=== PATIENT | male | born 1955 | race Caucasian/White ===

== ENCOUNTER 2017-10-22 22:37 | Emergency (ER) | payer OTHER ==
[2017-10-22 22:47] VITALS: TEMP 97.9; BMI 26.9
[2017-10-22 23:08] LABS: PH,URINE 6.5 (4.5-8); URINE APPEARANCE Clear; URINE BILIRUBIN Negative (NEGATIVE); URINE GLUCOSE (UA) Trace (NEGATIVE); URINE KETONE Negative (NEGATIVE); URINE LEUK ESTERASE Negative (NEGATIVE); URINE NITRITE Negative (NEGATIVE); URINE PROTEIN Negative (NEGATIVE); URINE UROBILINOGEN 0.2 (0.2-1.0)
[2017-10-22 23:15] LABS: URINE BLOOD Trace-intact (NEGATIVE); URINE COLOR YELLOW
[2017-10-22 23:29] LABS: AMORP URATES MODERATE /hpf (NONE SEEN); EPI CELLS FEW /HPF; URINE BACTERIA FEW /hpf (NEGATIVE)
[2017-10-23] MEDS ORDERED: IBUPROFEN 600 MG TABLET (FP) PO ONE ×2 (00:13→00:17)
[2017-10-23] MEDS ORDERED: CIPROFLOXACIN 500 MG TABLET (RESTRICTED TO ID) PO ONE (00:13)
[2017-10-23] MEDS ORDERED: PHENAZOPYRIDINE HCL 100 MG TABLET (FP) PO ONE (00:13)
--- NOTE | 2017-10-23 00:14 | PDOC ---
History of Present Illness - General Chief Complaint: Urinary Problem Stated Complaint: DIFFICULTY VOIDING Time Seen by Provider: 10/22/17 23:34 History Source: Patient - History of Present Illness Travel History: No Initial Comments: 10/23/17 01:48 pain in penis when he urinates Timing/Duration: reports: getting worse Quality: reports: severe Abdominal Pain Onset Location: reports: other (penis) Pain Radiation: reports: no radiation Activities at Onset: reports: none Treatment Prior to Arrive: worse with: analgesics Aggravating Factors: improves with: Voiding Alleviating Factors: improves with: Rest Past History - Past Medical History Allergies/Adverse Reactions: Allergies Allergy/AdvReac Type Severity Reaction Status Date / Time No Known Allergies Allergy Unverified 10/22/17 22:42 Home Medications: Ambulatory Orders Ciprofloxacin [Cipro (Restricted To Id)] 500 mg PO Q12H #14 tablet 10/23/17 Phenazopyridine HCl [Pyridium] 200 mg PO TID #6 tablet 10/23/17 Cancer: Yes (ESOPHAGEAL CA) COPD: No - Suicide/Smoking/Psychosocial Hx Smoking History: Never smoked Review of Systems - Review of Systems All Other Systems: Reviewed and Negative *Physical Exam - Vital Signs Last Vital Signs Temp Pulse Resp BP Pulse Ox 97.9 F 68 17 158/108 97 10/22/17 22:43 10/22/17 23:19 10/22/17 23:19 10/22/17 23:19 10/22/17 23:19 - Physical Exam General Appearance: Yes: Nourished HEENT: positive: Normal Voice Respiratory/Chest: positive: Lungs Clear Cardiovascular: positive: Regular Rhythm Gastrointestinal/Abdominal: negative: Tender, Distended, Mass Male Genitalia: positive: normal genitalia, other (distal penile tenderness without erythema) Lymphatic: negative: Adenopathy Musculoskeletal: positive: Normal Inspection Extremity: positive: Normal Capillary Refill Integumentary: positive: Normal Color Neurologic: positive: Fully Oriented ED Treatment Course - ADDITIONAL ORDERS Additional order review: Laboratory Results 10/22/17 22:56 Urine Color Yellow Urine Appearance Clear Urine pH 6.5 Ur Specific [place] 1.025 Urine Protein Negative Urine Glucose (UA) Trace Urine Ketones Negative Urine Blood Trace-intact H Urine Nitrite Negative Urine Bilirubin Negative Urine Urobilinogen 0.2 Ur Leukocyte Esterase Negative Urine RBC 5-10 Urine WBC 2-5 Ur Epithelial Cells Few Amorphous Urates Moderate Urine Bacteria Few Medical Decision Making - Medical Decision Making 10/23/17 01:50 urethritis will treat for urinary pathogen as no suspicion for STD abx analgesic *DC/Admit/Observation/Transfer Diagnosis at time of Disposition: Urethritis - Discharge Dispostion Disposition: HOME Condition at time of disposition: Stable - Prescriptions Prescriptions: Ciprofloxacin [Cipro (Restricted To Id)] 500 mg PO Q12H #14 tablet Phenazopyridine HCl [Pyridium] 200 mg PO TID #6 tablet - Referrals - Patient Instructions Printed Discharge Instructions: DI for Urethritis - Post Discharge Activity
[2017-10-23] MEDS ORDERED: CIPROFLOXACIN 250 MG TABLET (RESTRICTED TO ID) PO ONE (00:17)
[2017-10-23] MEDS ORDERED: PHENAZOPYRIDINE HCL 100 MG TABLET (FP) ONE (00:17)
[2017-10-23 00:25] VITALS: BP 154/103; PULSE 78
== END 2017-10-23 00:23 | disposition home or self-care (01) ==
LOC: FER 22:37
DX: N34.2 Other urethritis (principal); Z85.01 Personal history of malignant neoplasm of esophagus
CPT/HCPCS: 81003; 81015; 99282-25

== ENCOUNTER 2019-05-28 22:19 | Emergency (ER) | payer OTHER ==
[2019-05-28 22:28] VITALS: BP 157/94; PULSE 82; TEMP 98.1; BMI 26.9
== END 2019-05-28 23:30 | disposition home or self-care (01) ==
LOC: FER 22:19
PROC: 2W3QX1Z Immobilization of Right Lower Leg using Splint (ICD-10-PCS; principal; 2019-05-28)
DX: S83.411A Sprain of medial collateral ligament of right knee, initial encounter (principal); X50.0XXA Overexertion from strenuous movement or load, initial encounter; Y93.89 Activity, other specified; Y92.008 Other place in unspecified non-institutional (private) residence as the place of occurrence of the external cause; Z85.01 Personal history of malignant neoplasm of esophagus
CPT/HCPCS: 73562-TC-RT-FY; 99282-25

== ENCOUNTER 2020-03-28 21:10 | Emergency (ER) | payer OTHER ==
[2020-03-28 21:20] VITALS: PULSE 95; BMI 25.9
[2020-03-28 21:22] VITALS: TEMP 98.9
[2020-03-28] MEDS ORDERED: SODIUM CHLORIDE 1,000 ML IV STA (21:39)
[2020-03-28 22:00] LABS: BASO % 0.5 % (0-2.0); EOS % 1.1 % (0-4.5); HEMATOCRIT 43.8 % (35.4-49); HEMOGLOBIN 14.7 GM/dl (11.7-16.9); LYMPH % 12.2 % (8-40); MCH 29.7 pg (25.7-33.7); MCHC 33.7 g/dl (32.0-35.9); MEAN CELL VOLUME 88.2 fl (80-96); MEAN PLT VOLUME 8.3 fl (7.5-11.1); MONO % 6.8 % (3.8-10.2); NEUT % 79.4 % (42.8-82.8); PLATELET COUNT 331 K/MM3 (134-434); RBC 4.96 M/mm3 (4.00-5.60); RDW 13.4 % (11.9-15.9); WHITE BLOOD COUNT 13.6 K/mm3 (4.0-10.8)
[2020-03-28 22:13] LABS: ALBUMIN 3.5 g/dl (3.4-5.0); CALCIUM 8.9 mg/dl (8.5-10); CREATININE 0.8 mg/dl (0.55-1.3); POTASSIUM 3.6 mmol/L (3.5-5.1); TOT PROT 6.5 g/dl (6.4-8.2)
[2020-03-28 22:27] VITALS: BP 157/102
[2020-03-28] MEDS ORDERED: TAMSULOSIN HCL 0.4 MG CAP PO ONE (22:55)
--- NOTE | 2020-03-28 23:16 | PDOC ---
Documentation entered by Carmina Ibrahim SCRIBE, acting as scribe for Gale Chase MD. Gale Chase MD: This documentation has been prepared by the Alexandria pearce Brenda, SCRIBE, under my direction and personally reviewed by me in its entirety. I confirm that the documentation accurately reflects all work, treatment, procedures, and medical decision making performed by me. History of Present Illness - General Chief Complaint: Pain Stated Complaint: "I have Pain in my stomach" Time Seen by Provider: 03/28/20 21:15 History Source: Patient Exam Limitations: No Limitations - History of Present Illness Initial Comments: 03/28/20 21:18 The patient is a 65 year old male with a significant PMH of diverticulosis, esophageal CA s/p resection (2001) and GERD (on omeprazole who presents to the emergency department for evaluation of an episode of nausea, NBNB emesis, wretching, dry heaves/chills and diarrhea on Thursday night into Thursday morning ( 03/25-03/26). The patient notes that during that night, he wasn't able to walk due to the constant wretching, emesis and nausea. Patient notes that ever since that night he has continual diarrhea with chills/dry and an inability to feel warmer. His last episode of diarrhea was this morning. However, he notes that he has not had any episodes of emesis since then. He is also endorsing abdominal pain that radiates from his left upper quadrant to his right upper quadrant particularly aggravated by coughing and deep inspiration. Patient also reports a recent history of intermittent left lower quadrant abdominal pain that comes, lasting for 15-20 minutes before subsiding completely. The patient's significant other, on the bedside, notes that he had a 100.2 temperature this afternoon after being given Tylenol. The patient denies chest pain, shortness of breath, headache and dizziness. Denies constipation. Denies dysuria, frequency, urgency and hematuria. Allergies: NKA Past surgical history: Esophegectomy Social history: Former smoker (quit 1999) PCP: LUISA Donaldson 03/28/20 23:09 Past History - Medical History Allergies/Adverse Reactions: Allergies Allergy/AdvReac Type Severity Reaction Status Date / Time No Known Allergies Allergy Verified 03/28/20 21:11 Home Medications: Ambulatory Orders Esomeprazole Magnesium 40 mg PO DAILY 03/28/20 Azithromycin 250 mg PO DAILY #4 tablet 03/29/20 Cancer: Yes (ESOPHAGEAL CA) COPD: No - Psycho-Social/Smoking History Smoking History: Never smoked Review of Systems - Review of Systems Able to Perform ROS?: Yes Comments:: 03/28/20 21:19 GENERAL/CONSTITUTIONAL: (+) fever (+) Chills. HEAD, EYES, EARS, NOSE AND THROAT: No change in vision. No ear pain or d ischarge. No sore throat. CARDIOVASCULAR: No chest pain or shortness of breath. RESPIRATORY: No cough, wheezing, or hemoptysis. GASTROINTESTINAL: (+) nausea, vomiting, diarrhea, abdominal pain. No con stipation. GENITOURINARY: No dysuria, frequency, or change in urination. MUSCULOSKELETAL: No joint or muscle swelling or pain. No neck or back pain. SKIN: No rash NEUROLOGIC: No headache, vertigo, loss of consciousness, or change in strength/sensation. ENDOCRINE: No increased thirst. No abnormal weight change. HEMATOLOGIC/LYMPHATIC: No anemia, easy bleeding, or history of blood clots. ALLERGIC/IMMUNOLOGIC: No hives or skin allergy. \\ *Physical Exam - Physical Exam 03/28/20 21:19 GENERAL: Awake, alert, and fully oriented, in no acute distress HEAD: No signs of trauma EYES: PERRLA, EOMI, sclera anicteric, conjunctiva clear ENT: (+) Dry mucous membranes. Auricles normal inspection, hearing grossly normal, nares patent, oropharynx clear without exudates. NECK: Normal ROM, supple, no lymphadenopathy, JVD, or masses LUNGS: (+) Scattered crackles bilaterally. Breath sounds equal. No wheezes. HEART: Regular rate and rhythm, normal S1 and S2, no murmurs, rubs or gallops ABDOMEN: (+) Mild tenderness to palpation in the left upper quadrant and the epigastrium. (+) Mild Penny's sign. Soft, normoactive bowel sounds. No guarding, no rebound. No masses EXTREMITIES: Normal range of motion, no edema. No clubbing or cyanosis. No cords, erythema, or tenderness NEUROLOGICAL: Cranial nerves II through XII grossly intact. Normal speech, normal gait SKIN: Warm, Dry, normal turgor, no rashes or lesions noted. ED Treatment Course - LABORATORY CBC & Chemistry Diagram: 03/28/20 21:50 03/28/20 21:50 Medical Decision Making - Medical Decision Making As noted above, this 65-year-old man with a history of esophageal carcinoma (18 years ago; treated with resection), GERD, BPH, diverticular disease but no other significant past medical history presents with vomiting/diarrhea/left-sided abdominal pain for 3 days. Of note, he also had shaking chills and fever to 100.2 F at home earlier today. In the last few days, he has had improvement in the nausea/vomiting, although his diarrhea persists. Exam as noted, with patient appearing somewhat dehydrated and with mild midepigastric/left upper quadrant tenderness (no rebound or guarding noted) Because he has had diverticulosis seen on colonoscopy, diverticulitis is high on the differential diagnosis but pancreatitis, gastroenteritis also possibility. CBC, chemistry profile, lipase, urinalysis, troponin sent and patient started on IV normal saline hydration. Laboratory evaluation notable for white blood cell count of 13,600 with predominance of neutrophils. Chemistry profile is essentially normal with suggestion of prerenal azotemia but no elevation of LFTs. Lipase is normal. Abdominal/pelvic CT with IV contrast performed: Preliminary interpretation by Imaging on call3.5 mm x 1.3 mm density at the left UVJ is now small distal left ureteral stone without hydronephrosis or hydroureter. Also there is an enlarged heterogeneous prostate with indistinct margin between the bladder and the prostate gland. Of note, there is no evidence of acute diverticulitis, bowel obstruction or inflammation. The remainder of the solid organs are also normal without evidence of pancreatitis or cholecystitis. Evidence of trace right pleural effusion and infiltrates at the right lung base were seen. Results discussed with the patient and his significant other. His enlarged prostate has recently been evaluated with MRI by his urologist. No previous history of renal stones but in retrospect he did have some left-sided back pain last week which may have been related to kidney stone on the left side. Patient has a history of chronic cough and reports no recent increase in coughing or dyspnea. Because the patient has a history of low-grade fever and chills today and infiltrates were seen at the right lung base on CT of the abdomen, chest x-ray (PA and lateral views) were performed to fully evaluate lung [place]: Interpretation by Imaging on [place] airspace disease within the right upper lobe and right lower lobe. No pneumothorax, pleural effusion or abnormality of the pulmonary vasculature/gena/cardiac silhouette seen Patient will be treated with azithromycin course for presumed pneumonia of the right upper and right lower lobes: 500 mg dose given orally here and patient will have remainder of the course (250 mg daily for 4 days) sent to his pharmacy Patient will be discharged with recommendations to return to the ER if he has increased pain, persistent fever, recurrent vomiting or if he develops severe cough, shortness of breath. Meanwhile, he should plan to follow-up with his DC doctor (Dr. Sal) within the next 5 days Discharge - Discharge Information Problems reviewed: Yes Clinical Impression/Diagnosis: Kidney stone on left side Pneumonia Qualifiers: Pneumonia type: due to unspecified organism Laterality: right Lung location: lower lobe of lung Qualified Code(s): J18.9 - Pneumonia, unspecified organism Condition: Stable Disposition: HOME - Additional Discharge Information Prescriptions: Azithromycin 250 mg PO DAILY #4 tablet - Follow up/Referral - Patient Discharge Instructions Patient Printed Discharge Instructions: DI for Kidney Stones, DI for Pneumonia -- Adult Additional Instructions: Rest; drink plenty of fluids Azithromycin 250 mg daily for the next 4 days (next dose tomorrow) Follow-up with your doctor within the next 5 days Return to ER immediately if you have shortness of breath, severe cough, persistent high fever, severe abdominal or chest pain - Post Discharge Activity
[2020-03-29 01:12] LABS: URINE APPEARANCE CLEAR; URINE BILIRUBIN NEGATIVE (NEGATIVE); URINE COLOR YELLOW; URINE GLUCOSE (UA) NEGATIVE (NEGATIVE); URINE KETONE NEGATIVE (NEGATIVE); URINE LEUK ESTERASE NEGATIVE (NEGATIVE); URINE NITRITE NEGATIVE (NEGATIVE); URINE PROTEIN NEGATIVE (NEGATIVE)
[2020-03-29] MEDS ORDERED: AZITHROMYCIN 250 MG TABLET PO ONE (01:43)
[2020-03-29] MEDS ORDERED: AZITHROMYCIN 250 MG TABLET ONE (01:46)
== END 2020-03-29 01:58 | disposition home or self-care (01) ==
LOC: FER 21:10
PROC: 3E0337Z Introduction of Electrolytic and Water Balance Substance into Peripheral Vein, Percutaneous Approach (ICD-10-PCS; principal; 2020-03-28)
DX: N39.0 Urinary tract infection, site not specified (principal); J18.9 Pneumonia, unspecified organism
CPT/HCPCS: 36415; 71046-TC-FY; 74177-TC; 80053; 81003; 82550; 83690; 84484; 85025; 99285-25; Q9967